=== PATIENT | female | born 1975 | race Caucasian/White ===

== ENCOUNTER 2021-02-03 15:21 | Emergency (ER) | payer MEDICAID ==
[~2021-02-03] VITALS: Ht 160 cm; Wt 73.6 kg
[2021-02-03 16:02] VITALS: BP 132/92
== END 2021-02-03 20:02 | disposition left against medical advice (07) ==
LOC: ER 15:22
DX: R00.2 Palpitations (principal); Z53.21 Procedure and treatment not carried out due to patient leaving prior to being seen by health care provider
CPT/HCPCS: 93005